=== PATIENT | female | born 1960 | race Caucasian/White ===

== ENCOUNTER 2017-08-26 02:58 | Emergency (ER) | payer MEDICAID ==
[2017-08-26] MEDS ORDERED: HYDROmorphone 2 MG/ML SDV IM ONE ×2 (03:08→03:09)
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
--- NOTE | 2017-08-27 12:15 | CR ---
INDICATION: Left wrist pain. LEFT WRIST: Frontal and lateral views of the left wrist revealed a comminuted Colles' type fracture of the distal radial metaphysis with impaction of fracture fragments, marked dorsal angulation of the radial joint surface and also an ulnar styloid fracture which appears in adequate position and alignment. IMPRESSION: Colles' fracture with deformity. [facility]
== END 2017-08-26 04:45 ==
LOC: FB.ED 02:58
DX: S52.532A Colles' fracture of left radius, initial encounter for closed fracture (principal); X50.9XXA Other and unspecified overexertion or strenuous movements or postures, initial encounter
CPT/HCPCS: 73100; 96372; 99284; J1170